=== PATIENT | male | born 1955 | race Two or more races ===

== ENCOUNTER 2018-09-04 19:56 | Emergency (ER) | payer SELFPAY ==
[~2018-09-04] VITALS: Ht 144.8 cm; Wt 84.5 kg
[~2018-09-04 19:56] MED LIST: ASPI-556 PO; CALC500T7 PO; GLYB2.5T5 PO; METO25 PO; MULT1TAB70 PO; PANT40TA25 PO; SIMV-260 PO
[2018-09-04] MEDS ORDERED: METF-960 PO (20:17)
[2018-09-04] MEDS ORDERED: ASPI-556 PO (20:17)
[2018-09-04] MEDS ORDERED: [UNRECOGNIZED DRUG - OTHER] PO (20:17)
[2018-09-04] MEDS ORDERED: AMLO-511 PO (20:17)
[2018-09-04 20:19] LABS: GLUCOSE,POINT OF CARE 271 MG/DL (70-110)
[2018-09-04] MEDS ORDERED: ACETAMINOPHEN 500 MG TABLET PO ONE (20:30)
[2018-09-04] MEDS ORDERED: BACITRACIN 0.9 GM PACKET OINTMENT TP ONE (20:30)
[2018-09-04] MEDS ORDERED: PERTUSS(ACELL),DIPH,TET VAC/PF 0.5 ML VIAL IM ONE (20:30)
[2018-09-04 21:23] VITALS: BP 129/73
== END 2018-09-04 21:26 | disposition home or self-care (01) ==
LOC: EMS 19:57
DX: S01.01XA Laceration without foreign body of scalp, initial encounter (principal); I10 Essential (primary) hypertension; Z79.82 Long term (current) use of aspirin; Z79.84 Long term (current) use of oral hypoglycemic drugs; W01.198A Fall on same level from slipping, tripping and stumbling with subsequent striking against other object, initial encounter; Y93.89 Activity, other specified; Y92.89 Other specified places as the place of occurrence of the external cause; Y99.8 Other external cause status
CPT/HCPCS: 12002; 90471; 90715

== ENCOUNTER 2018-09-20 15:20 | Emergency (ER) | payer SELFPAY ==
[~2018-09-20] VITALS: Ht 162.6 cm; Wt 113.6 kg
[~2018-09-20 15:20] MED LIST changes: +AMLO-511 PO; -GLYB2.5T5 PO; +METF-960 PO; -METO25 PO; -MULT1TAB70 PO; -PANT40TA25 PO; -SIMV-260 PO; +[UNRECOGNIZED DRUG - OTHER] PO
[2018-09-20 15:23] VITALS: BP 141/87
== END 2018-09-20 17:33 | disposition left against medical advice (07) ==
LOC: EMS 15:20
DX: Z48.02 Encounter for removal of sutures (principal); Z53.21 Procedure and treatment not carried out due to patient leaving prior to being seen by health care provider
CPT/HCPCS: 82948